=== PATIENT | female | born 1985 | race African-American/Black ===

== ENCOUNTER → 2022-02-09 08:34 | Outpatient (CLI) | payer BC, SELFPAY ==
--- NOTE | ~2022-02-09 | XR_ITS ---
EXAMINATION: XR abdomen/kub 1V INDICATION: Bilateral kidney stones TECHNIQUE: Supine views of the abdomen were obtained on 2 radiographs. COMPARISON: CT from today FINDINGS: Bowel contents project over the kidneys limiting sensitivity for renal stones. The known ki dney stones identified on today's CT are not definitely identified. A large volume of colonic stool i s present. The visualized lung bases are clear. The bowel gas pattern is normal. Osteitis pubis is no bebe. IMPRESSION: 1. Known nephrolithiasis obscured by bowel contents. Reviewed, dictated and finalized at location A.
--- NOTE | ~2022-02-09 | CT_ITS ---
EXAMINATION: CT abdomen pelvis wo con DATE: 02/09/2022 08:54 INDICATION: Bilateral kidney stones TECHNIQUE: Computed tomography (CT) of the abdomen and pelvis was performed without intravenous contr ast. The dose-length product was 442.00 mGy-cm. Automated exposure control and iterative reconstructi on technique were employed. COMPARISON: CT dated 02/21/2017. FINDINGS: Lung bases are unremarkable. Heart size normal. No significant pleural or pericardial effus ion. The liver, spleen, adrenal glands are unremarkable. There are punctate nonobstructing bilateral renal stones. No ureteral stones or hydronephrosis. Gallbladder is present. Nonobstructive bowel gas pattern. There is a right adnexal cyst measuring 4 cm, likely ovarian. Nonobstructive bowel gas patte rn. No abnormal pelvic masses or fluid collections. No free air or free fluid. No significant vascula r abnormality. No lymphadenopathy. No acute osseous abnormality. IMPRESSION: 1. Right adnexal cyst measuring 4 cm, likely ovarian. 2: Nonobstructing bilateral nephrolithiasis. Reviewed, dictated and finalized at location A.
== END ==
PROVIDERS: PCP Obstetrics & Gynecology; Visit Provider Urology
DX: N20.0 Calculus of kidney (principal)
CPT/HCPCS: 74018; 74176

== ENCOUNTER → 2023-02-28 09:02 | Outpatient (CLI) | payer BC, SELFPAY ==
--- NOTE | ~2023-02-28 | XR_ITS ---
EXAMINATION: XR abdomen/kub 1V INDICATION: Bilateral kidney stones TECHNIQUE: Supine views of the abdomen were obtained on 2 radiographs. COMPARISON: 02/09/2022 FINDINGS: No definite urolithiasis is identified. The bowel gas pattern is normal. The visualized chela g bases are clear. Osteitis pubis is noted. IMPRESSION: 1. No urolithiasis identified. Reviewed, dictated and finalized at location L.
== END ==
PROVIDERS: PCP Urology; Visit Provider Urology
DX: N20.0 Calculus of kidney (principal)
CPT/HCPCS: 74018

== ENCOUNTER 2024-10-11 10:18 | Emergency (ER) | payer OTHER, SELFPAY ==
--- OUTSIDE RECORDS SUMMARY | 2024-10-11 10:21 | XMS_ITS | Clinical Summary ---
Author Organization [facility] Address [address] [place] [id number] Care Team Providers Care Environmental Emergencies Assistant Name Role Phone Zully Clark NP Primary Care Provider [phone] Stephanie Waters MD Unavailable [phone] Allergies Active Allergy Reactions Criticality Noted Date Comments Adhesive Rash Medium 03/05/2023 Fentanyl Swelling Medium 07/19/2018 glands Morphine Hives,Itching Medium 05/27/2017 Sesame Oil Rash Medium 12/03/2021 Medications ketorolac (TORADOL) 10 mg tablet Take 1 tablet (10 mg total) by mouth every 6 (six) hours as needed for pain Active oxyCODONE (ROXICODONE) 5 mg immediate release tabletIndicatio ns:Pain Take 1 tablet (5 mg total) by mouth every 4 (four) hours as needed for pain 10 tablet 03/27/2023 Active promethazine (PHENERGAN) 25 mg tablet Take 1 tablet (25 mg total) by mouth every 6 (six) hours as needed for nausea or vomiting 20 tablet 03/27/2023 Active Active Problems Problem Noted Date Diagnosed Date Endometriosis of ovary 03/06/2023 Chronic pelvic pain in female 2017 Immunizations Immunization Administration Dates Next Due DTaP 05/08/2018 Influenza, Quadrivalent, Alma l Culture-based MDCK, Preservative Free, Antibiotic Free, Intramuscular 02/29/2020 Influenza, Quadrivalent, Spl it, Intramuscular 04/02/2019 Influenza, Quadrivalent, Spl it, Preservative Free, Intramuscular 02/19/2023,03/30/2022,03/05/2021,03/03 Influenza, Trivalent, IM (MDV) 03/30/2018 Influenza, Unspecified 03/20/2017 Tdap 05/09/2018 Surgical History Surgery Date Site/Laterality Comments OTHER SURGICAL HISTORY 05/20/2012 - 05/19/2013 Endometriosis: laparascopic exploration with L salpingectomy OR SALPINGECTOMY COMPLETE/PARTIAL UNI/BI SPX 05/20/2017 - 05/19/2018 Salpingectomy - (Added by MANGO Conv) SECTION 07/18/2018 - 08/17/2018 CYSTOSCOPY W/ LASER LITHOTRIPSY 05/20/2002 - 05/19/2003 FERTILITY SURGERY 2015, 2016,and 2020 SALPINGOOPHORECTOMY 05/20/2022 - 05/19/2023 Medical History Medical History Date Comments Endometriosis Endometriosis; C omments: KELTON 10/21/2015 - Chronic kidney disease Family History Medical History Relation Name Comments Hypertension Father Hypertension; Hypertension Mother Hypertension; Thyroid disease Mother Thyroid diso rder; Breast cancer Paternal Grandmother Family history of breast cancer - (Added by MANGO Conv) Anesthesia problems Neg Hx Relation Name Status Comments Father Mother Paternal Grandmother Social History Tobacco Use Types Packs/Day Years Used Date Smoking Tobacco: Never Passive Smoke Exposure: Never Smokeless Tobacco: Never Alcohol Use Standard Drinks/Week Comments No 0 (1 standard drink = 0.6 oz pur e alcohol) AUDIT-C Answer Date Recorded Frequency of Alcohol Consumption Not on file 03/14/2023 Q2: How many drinks containi ng alcohol do you have on a typical day when you are drinking? Patient does not drink Frequency of Binge Drinking Not on file 02/18 Personal Safety Answer Date Recorded Have you ever been in or are you currently in a harmful physical or emotional relationship or is someone making you feel afraid or unsafe? Denies 03/27/2023 Comments No Sex and Gender Information Value Date Recorded Sex Assigned at Not on file Legal Sex Female 4:07 AM ADOBE LAYER HELPER Gender Identity Female 03/12/2023 10:17 PM CDT Sexual Orientation Straight 03/12/2023 10 :17 PM CDT Obstetrics History Para Term AB IAB SAB Ectopic Multiple Livin g Live Births 2 1 1 1 Date Outcome GA Total Labor Labor/2nd/3rd Weight Sex Type Anes PTL Sandy A1 A5 Name Clin SAB Last Filed Vital Signs Vital Sign Reading Time Taken Comments Blood Pressure 115/77 04/08/2023 8:23 AM ADOBE LAYER HELPER Pulse 112 04/08/2023 8:23 AM ADOBE LAYER HELPER Temperature 36.1 C (97 F) 04/08/2023 8:23 AM ADOBE LAYER HELPER Respiratory Rate 18 04/08/2023 8:23 AM ADOBE LAYER HELPER Oxygen Saturation 99% 04/08/2023 8:23 AM ADOBE LAYER HELPER Inhaled Oxygen Concentration - - Weight 75.4 kg (166 lb 3.2 oz) 04/08/2023 8:23 A M ADOBE LAYER HELPER Height 158.8 cm (5' 2.5) 04/08/2023 8:23 AM ADOBE LAYER HELPER Body Mass Index 29.91 04/08/2023 8:23 AM ADOBE LAYER HELPER Plan of Treatment Health Maintenance Due Date Last Done Comments Breast Cancer Screening-Mammogram 1984 Cervical Cancer Screening 1984 Depression Screening 1984 Hepatitis C Screening 1984 Varicella Vaccines (1 of 2 - 13+ 2-dose series) 1997 Hepatitis B Screening 2002 Regular Well Visit/Exam 18-64 2002 Covid-19 Vaccine (3 - season) 2024 09/27/2020, 08/30/2020 Influenza Vaccine (Season Ended) 2025 02/19/2023, 03/30/2022, 03/05/2021, Additional history exists DTaP/Tdap/Td Vaccine (3 - Td or Tdap) 05/09/2028 05/09/2018, 05/08/2018 HPV Vaccines Aged Out No longer eligi ble based on patient's age to complete this topic Pneumococcal vaccine <65 Aged Out No longer eligible based on patient's age to complete this topic Insurance [facility] [place] Care Teams Environmental Emergencies Assistant Relationship Specialty [place] [address] [place] [address] PCP - General 04/26/17 [place] [address] [place] [address] Consulting Physician Obstetrics and Gynecology 02/21/23
--- OUTSIDE RECORDS SUMMARY | 2024-10-11 10:21 | XMS_ITS | Referral Summary ---
Author Organization [facility] Address [address] [place] [id number] Care Team Providers Care Manager Software Development Name Role Phone Zully Clark NP Primary Care Provider [phone] Stephanie Waters MD Unavailable [phone] Allergies Active Allergy Reactions Criticality Noted Date [...] (MDV) 03/30/2018 Influenza, Unspecified 03/20/2017 Tdap 05/09/2018 Social History Tobacco Use Types Packs/Day Years [...] on file Legal Sex Female 4:07 AM IT INFRASTRUCTURE SPECIALIST Gender Identity Female 03/12/2023 10:17 PM CDT Sexual Orientation Straight 03/12/2023 10 :17 PM CDT Last Filed Vital Signs Vital Sign Reading Time Taken Comments Blood Pressure 115/77 04/08/2023 8:23 AM IT INFRASTRUCTURE SPECIALIST Pulse 112 04/08/2023 8:23 AM IT INFRASTRUCTURE SPECIALIST Temperature 36.1 C (97 F) 04/08/2023 8:23 AM IT INFRASTRUCTURE SPECIALIST Respiratory Rate 18 04/08/2023 8:23 AM IT INFRASTRUCTURE SPECIALIST Oxygen Saturation 99% 04/08/2023 8:23 AM IT INFRASTRUCTURE SPECIALIST Inhaled Oxygen Concentration - - Weight 75.4 kg (166 lb 3.2 oz) 04/08/2023 8:23 A M IT INFRASTRUCTURE SPECIALIST Height 158.8 cm (5' 2.5) 04/08/2023 8:23 AM IT INFRASTRUCTURE SPECIALIST Body Mass Index 29.91 04/08/2023 8:23 AM IT INFRASTRUCTURE SPECIALIST Plan of Treatment Not on file Insurance [facility] [place] Care Teams Manager Software Development Relationship Specialty [place] [address] [place] [address] PCP - General 04/26/17 [place] [address] [place] [address] Consulting Physician Obstetrics and Gynecology 02/21/23
[2024-10-11 10:28] VITALS: BP 108/60; PULSE 73; RESP 18; TEMP 36.5; O2SAT 100
--- NOTE | 2024-10-11 10:50 | ED.GENADULT ---
HPI - General Adult General Chief complaint: Urogenital-Female Stated complaint: urinary pressure/frequent urination History of Present Illness HPI narrative: Anna Baez Is a 39-year-old female who presents today with complaints of having urinary urgency /pressure that started about 2-3 days ago. She denies any dysuria, denies flank pain, denies any fevers or chills. She states that she does get frequent urinary tract infections and she does know he is present with typical symptoms and she feels that she has at no other urinary tract infection today. She denies having any concerns for sexually transmitted infections. Related Data Home Medications ?Medication ?Instructions ?Recorded ?Confirmed ?Last Taken ?Type No Home Medications 10/11/24 10/11/24 Unknown History Allergies Allergy/AdvReac Type Severity Reaction Status Date / Time sesame oil Allergy Intermediate Swelling Verified 10/11/24 10:33 adhesive tape Allergy Mild Rash Verified 10/11/24 10:33 fentanyl Allergy Mild Swelling Verified 10/11/24 10:33 morphine Allergy Unknown Hives / Verified 10/11/24 10:33 Red Face Review of Systems Review of Systems: All systems reviewed & are unremarkable except as noted in HPI and below Exam Narrative: GENERAL: Well-appearing, well-nourished, and in no acute distress. HEAD: Normocephalic, atraumatic. EYES: PERRLA and EOMI. ENT: Nares clear, no rhinorrhea or epistaxis. Mucous membranes moist. NECK: Supple. No adenopathy or masses. No carotid bruits or JVD CHEST: Clear to auscultation. No respiratory distress. No wheezes rales or rhonchi HEART: Regular rate and rhythm. No murmur heard. Normal peripheral pulses. EXTREMITIES: Normal range of motion. No edema. SKIN: Warm, dry, no rash. NEURO: No focal deficits. Alert and oriented x3. PSYCH: Normal mood and affect. Course Course Level of Care: Express Care Visit Vital Signs Vital signs: Vital Signs Temperature 36.5 C 10/11/24 10:28 Pulse Rate 73 10/11/24 10:28 Respiratory Rate 18 10/11/24 10:28 Blood Pressure 108/60 10/11/24 10:28 Pulse Oximetry 100 10/11/24 10:28 Oxygen Delivery Room Air 10/11/24 10:28 Temperature 36.5 C 10/11/24 10:28 Pulse Rate 73 10/11/24 10:28 Respiratory Rate 18 10/11/24 10:28 Blood Pressure 108/60 10/11/24 10:28 Pulse Oximetry 100 10/11/24 10:28 Oxygen Delivery Room Air 10/11/24 10:28 Medical Decision Making MDM Narrative Medical decision making narrative: 39-year-old female who presents today with complaints of having urinary symptoms concern for urinary tract infection. Urine dip here is negative for any signs of infection updated patient on these findings and will send a urine culture to be sure. patient denies needing anything else at this time. Encouraged to seek emergency care if she develops abdominal pain, unable to urinate or any other symptoms patient is agreeable to this plan Medical Records Medical records reviewed: Yes I reviewed the external patient's medical records. Vital Signs Vital Signs: Vital Signs Temperature 36.5 C 10/11/24 10:28 Pulse Rate 73 10/11/24 10:28 Respiratory Rate 18 10/11/24 10:28 Blood Pressure 108/60 10/11/24 10:28 Pulse Oximetry 100 10/11/24 10:28 Oxygen Delivery Room Air 10/11/24 10:28 Temperature 36.5 C 10/11/24 10:28 Pulse Rate 73 10/11/24 10:28 Respiratory Rate 18 10/11/24 10:28 Blood Pressure 108/60 10/11/24 10:28 Pulse Oximetry 100 10/11/24 10:28 Oxygen Delivery Room Air 10/11/24 10:28 Vitals reviewed by me Lab Data Lab results reviewed: Yes I reviewed the patient's lab results. Discharge Plan Discharge Clinical Impression: Urinary urgency Patient Disposition: Home Condition: Stable Instructions: Antibiotic Form Additional Instructions: Your urine dip today with negative for any signs of infection your urine culture will be back in the next 2-3 days if he should need further treatment you will be notified in the meantime push hydration drinking plenty of fluids. You may also try to take something [id number] to help move your bowels to see if that is causing your urinary frequency Follow up with your PCP in 1 week Patient Language: Bahamian Prescriptions: No Action No Home Medications Follow-up/Referrals: Eileen,Mireya Ochoa APRN [Primary Care Provider] - Time of Disposition: 10:55
[2024-10-11 10:53] LABS: EDUAAPPEAR Clear; EDUABILI Negative (Negative); EDUABLOOD Negative (Negative); EDUACOLOR1 Yellow; EDUAGLUCOSE Negative (Negative); EDUAKETONE Negative (Negative); EDUALEUKO Negative (Negative); EDUANITRATE Negative (Negative); EDUAPROTEIN Negative (Negative); EDUAUROBILI 0.2
== END 2024-10-11 10:57 | disposition home or self-care (01) ==
PROVIDERS: Emergency Provider Nurse Practitioner Family; PCP Nurse Practitioner Family
DX: R39.15 Urgency of urination (principal)
CPT/HCPCS: 81003; 87086; 99203; G0463